=== PATIENT | female | born 1950 | race Caucasian/White ===

== ENCOUNTER 2017-09-11 18:37 | Emergency (ER) | payer BC, MEDICARE ==
[~2017-09-11 18:37] MED LIST: Iopamidol 370 76% 100 ML VIAL ONE
[2017-09-11 19:23] LABS: #Eosinphils 0.3 thou/uL (0.0-0.7); #Lymphocytes 1.5 thou/uL (1.20-3.40); #Monocytes 0.7 thou/uL (0.11-0.59); #Neutrophils 8.2 thou/uL (1.40-6.50); %Basophils 0.4 % (0.0-1.0); %Eosinophils 2.4 % (0.0-10.0); %Lymphocytes 14.1 % (21.0-51.0); %Monocytes 6.1 % (0.0-10.0); Hemoglobin 12.2 g/dL (12.0-16.0); Mean Corpuscular HGB CONC 32.6 g/dL (32.0-36.0); Mean Corpuscular Hemoglobin 29.1 pg (27.0-31.0); Mean Corpuscular Volume 89.1 fl (81.0-99.0); Mean Platelet Volume 7.1 fL (7.4-10.4); Platelet Count 279 thou/uL (130-400); RBC Distribution Width 13.5 % (11.5-14.5); Red Blood Cell (RBC) Count 4.18 mill/uL (4.20-5.40); White Blood Cell (WBC) Count 10.6 thou/uL (4.8-10.8)
[2017-09-11 19:39] LABS: ALT (SGPT) 19 U/L (8-55); AST (SGOT) 15 U/L (5-34); Alkaline Phosphatase 51 U/L (40-150); Anion Gap 14 mmol/L (10-20); BUN (Urea Nitrogen) 14 mg/dL (9.8-20.1); Bilirubin, Total 0.3 mg/dL (0.2-1.2); Calc. Creatinine Clearance 0 mL/min (70-130); Calcium 9.2 mg/dL (7.8-10.44); Carbon Dioxide 26 mmol/L (23-31); Chloride 105 mmol/L (98-107); Estimated GFR-MDRD 49; Globulin 3.1 g/dL (2.4-3.5); Glucose 112 mg/dL (80-115); Lipase 41 U/L (8-78); Potassium 3.7 mmol/L (3.5-5.1); Protein, Total 7.1 g/dL (6.0-8.3); Sodium 141 mmol/L (136-145)
[2017-09-11 20:28] LABS: Bilirubin Negative (Negative); Blood, Urine Trace (Negative); Clarity Clear (Clear); Glucose, Urine (Dipstick) Negative (Negative); Leukocyte Negative (Negative); Nitrite Negative (Negative); Protein, Urine (Dipstick) Negative (Neg-Trace); Urobilinogen 0.2 mg/dL (0.2-1.0); pH, Urine 7.5 (5.0-9.0)
[2017-09-11 20:35] LABS: Bacteria/HPF Rare-Few HPF (None Seen); RBC/HPF 0-3 HPF (0-3); Squamous Epithelial 0-3 HPF (0-3); WBC/HPF 0-3 HPF (0-3)
--- NOTE | 2017-09-11 21:40 | CT ---
CT ABDOMEN AND PELVIS WITH IV CONTRAST 09/11/17 HISTORY: Abdominal pain that began at 0430 hours today. Patient states similar symptoms when patient was diagn osed with diverticulitis. Patient also reports nausea and constipation. COMPARISON: 07/18/11. FINDINGS: There are partially calcified bilateral breast prostheses again partially imaged. Lung bases are clear. There is a subcentimeter too small to characterize hypodense lesion near the dome of the liver. The spleen, pancreas, bilateral adrenal glands, kidneys, and urinary bladder demonstrate a normal CT appearance. There is a lobulated appearance of the uterus with small low density mass with increased density pres ent in the anterior body of the uterus measuring 1.9 cm with suggestion of increased density rounded mass resulting in mass effect on the endometrium measuring 1.8 cm. The findings are probably related to uterine fibroids, although it is difficult to definitely determine. There are colonic diverticula involving the distal descending and proximal sigmoid colon with colonic wall thickening and adjacent pericolonic inflammatory changes. The findings are most compatible with diverticulitis. No free intraperitoneal gas is seen and there is no fluid collection seen to suggest an abscess. Small amount of free fluid is seen in the cul-de-sac. Degenerative changes are noted in the lower lum bar spine. IMPRESSION: 1. Diverticulitis involving the proximal sigmoid colon. Followup evaluation after treatment is r ecommended. 2. Small amount of free fluid in the pelvis. 3. Findings likely attributable to uterine fibroids. 4. Subcentimeter too small to characterize hypodense lesion near the dome of the liver. 5. No CT evidence of appendicitis. POS: [facility]
== END 2017-09-11 20:34 | disposition home or self-care (01) ==
LOC: SCSER 18:37
DX: K57.92 Diverticulitis of intestine, part unspecified, without perforation or abscess without bleeding (principal); K76.9 Liver disease, unspecified; K21.9 Gastro-esophageal reflux disease without esophagitis
CPT/HCPCS: 36415; 74177; 80053; 81003; 81015; 83690; 85025; 96360

== ENCOUNTER 2017-10-21 12:04 | Outpatient (CLI) | payer BC, MEDICARE ==
--- NOTE | 2017-10-21 15:10 | ULT ---
PELVIC ULTRASOUND: Transabdominal and endovaginal ultrasound of pelvis performed. HISTORY: Uterine mass. Recent CT suggest uterine fibroids. FINDINGS: Uterus is mildly prominent with measurements recorded at 13.5 x 5.6 x 5.0 cm. There is fluid or blood in the endometrial cavity with endometrium being prominent. Endometrial stri pe cannot be adequately assessed due to the blood/fluid in the endometrial cavity. There is a small focal hyperechoic area in the endometrium measuring approximately 0.7 cm, which could potentially rep resent an endometrial polyp or mass. Uterus is slightly retroverted. There is evidence of 2 uterine fibroids, the largest in the fundus measures 2.2 cm. Another measures 1 to 1.5 cm. Neither ovary is identified. No free pelvic fluid. IMPRESSION: 1. Mildly prominent uterus with evidence of uterine fibroids as described. 2. Endometrial cavity is abnormal in a patient of this age. There is fluid/blood in the endometrial cavity and there is an echogenic focus which could represent polyp or mass. Recommend endometrial s ampling. POS: [facility]
== END 2017-10-21 12:05 | disposition home or self-care (01) ==
LOC: ULT 12:04
PROVIDERS: ATTEND Family Medicine
DX: N85.9 Noninflammatory disorder of uterus, unspecified (principal); R01.1 Cardiac murmur, unspecified; I34.0 Nonrheumatic mitral (valve) insufficiency; D25.9 Leiomyoma of uterus, unspecified
CPT/HCPCS: 76856; 93306

== ENCOUNTER 2017-11-13 07:54 | Outpatient (CLI) | payer BC, MEDICARE | END 2017-11-13 07:55 | disposition home or self-care (01) | LOC: BICMAMMO 07:54 | PROVIDERS: ATTEND Family Medicine | DX: Z12.31 Encounter for screening mammogram for malignant neoplasm of breast (principal); Z78.0 Asymptomatic menopausal state | CPT/HCPCS: 77063; 77067; 77080 ==

== ENCOUNTER 2017-12-17 15:42 | Outpatient (CLI) | payer BC, MEDICARE ==
[2017-12-17 16:14] LABS: Hemoglobin 12.2 g/dL (12.0-16.0); Mean Corpuscular HGB CONC 32.4 g/dL (32.0-36.0); Mean Corpuscular Hemoglobin 28.8 pg (27.0-31.0); Mean Platelet Volume 7.3 fL (7.4-10.4); Platelet Count 247 thou/uL (130-400); RBC Distribution Width 13.5 % (11.5-14.5); Red Blood Cell (RBC) Count 4.23 mill/uL (4.20-5.40)
== END 2017-12-17 15:43 | disposition home or self-care (01) ==
LOC: LABBT 15:42
PROVIDERS: ATTEND Obstetrics & Gynecology
DX: Z01.812 Encounter for preprocedural laboratory examination (principal); N95.0 Postmenopausal bleeding
CPT/HCPCS: 85027; 86850; 86900; 86901

== ENCOUNTER 2017-12-23 05:33 | Day surgery (SDC) | payer BC, MEDICARE ==
[2017-12-17 16:10] VITALS: BMI 31.8
--- NOTE | 2017-12-22 20:03 | HP ---
PREOPERATIVE DIAGNOSIS: Abnormal endometrium. PROCEDURES TO BE PERFORMED: Cervical dilation, hysteroscopy, and possible polypectomy versus endomet rial curettage. HISTORY OF PRESENT ILLNESS: Ms. Anna Garber is a 67-year-old 3, para 3, who was referred fr om Dr. Tae Boothe for abnormal ultrasound findings. The patient reports menopause after dilation and curettage procedure approximately 10 years ago. The patient had a CT scan for diverticular concerns and an enlarged uterus was noted, and an ultrasound subsequently completed. An ultrasound reports a n approximate 13 cm uterus with a small fibroid and fluid within the endometrial cavity. Today, the patient denies any postmenopausal bleeding. The patient was counseled and consented for office hyste roscopy and endometrial biopsy; however, her cervical stenosis was encountered at the time of her exa m and endometrial biopsy did not yield a satisfactory specimen and hysteroscopy was not able to be co mpleted. The patient has since been counseled for diagnostic hysteroscopy with endometrial sampling. CURRENT MEDICATIONS: Prempro 0.625/2.5. PAST MEDICAL HISTORY: Diverticulitis, hyperlipidemia, and osteoarthritis. PAST SURGICAL HISTORY: Breast enlargement procedure and tubal ligation. OBSTETRICAL HISTORY: Three vaginal deliveries. GYNECOLOGIC HISTORY: Last menstrual period approximately in 2007. SOCIAL HISTORY: No alcohol, tobacco or drug use. She works fulltime at [employer] and is currently . ALLERGIES: The patient does not report any latex allergy, only reported allergy is PENICILLIN. FAMILY HISTORY: Significant for endometrial cancer in her mother, essential hypertension in her moth er, heart disease in her father and sister with colon cancer. REVIEW OF SYSTEMS: Negative except as stated in HPI. PHYSICAL EXAMINATION: VITAL SIGNS: Weight 180 pounds, BMI 31.9, blood pressure 120/64. GENERAL: No acute distress. Alert and oriented. CARDIOVASCULAR: Regular rate and rhythm. LUNGS: Clear to auscultation bilaterally. ABDOMEN: Soft, nontender, no masses. No hepatosplenomegaly, no hernia. GENITOURINARY: Normal external female genitalia with expected postmenopausal findings. PELVIC: Normal appearing vaginal mucosa, no discharge, no cervical lesions. Uterus moderately enlar ged, but nontender. MUSCULOSKELETAL: Normal range of motion. NEUROLOGIC: Grossly oriented. SKIN: No rashes. ASSESSMENT AND PLAN: Ms. Anna Garber is a 67-year-old with abnormal ultrasound findings with a thic kened endometrial stripe and fluid within the endometrial cavity. She does not have a history of pos tmenopausal bleeding, but with these abnormal ultrasound findings and a family history of uterine and colon cancer, we have discussed the indication for diagnostic hysteroscopy with possible polypectomy versus endometrial curettage. The patient has been offered genetic testing for Sierra syndrome and h as not requested testing at this time. The risk and benefits of the procedure have been discussed wi th her in detail. She understands the risks are to include, but not limited to bleeding, infection, inability to fully diagnose and treat all conditions at the time of surgery, and possible need for fu ture medical and/or surgical management. She also understands a hysteroscopy carries a risk of uteri ne perforation with possible indication for emergent laparotomy. The patient's questions have been a nswered to her satisfaction, and she desires to proceed with the procedure as listed above.
[2017-12-23] MEDS ORDERED: Fentanyl 100 MCG/2 ML VIAL ONE (06:35)
[2017-12-23] MEDS ORDERED: Promethazine HCl 25 MG/ML VIAL ONE (07:02)
[2017-12-23] MEDS ORDERED: Famotidine/PF 20 mg/2ml Vial ONE (07:02)
[2017-12-23] MEDS ORDERED: Midazolam HCl 2 mg/2 ml Vial ONE (07:32)
--- NOTE | 2017-12-23 11:31 | OP ---
DATE OF PROCEDURE: 12/23/2017 PREOPERATIVE DIAGNOSES: 1. Abnormal endometrium with endometrial fluid collection on ultrasound. 2. Enlarged uterus. POSTOPERATIVE DIAGNOSIS: Hematocolpos, abnormal endometrium. PROCEDURES PERFORMED: Cervical dilation, diagnostic hysteroscopy and endometrial curettage. SURGEON: Samm Boothe D.O. BUSINESS ANALYTICS FACULTY MEMBER: None. ESTIMATED BLOOD LOSS: Less than 10 mL. ANESTHESIA: LMA. COMPLICATIONS: None. SURGICAL FINDINGS: 1. Stenotic cervix. 2. Hematocolpos. 3. Abnormal appearing endometrium with a small polyp on the right lateral wall and proliferative giovani demetri cystic changes to the endometrium noted. PROCEDURE IN DETAIL: The patient was taken back to the OR with IV fluids running. Once the patient was asleep, she was placed in low dorsal lithotomy position. The vagina was prepped and draped in no rmal fashion for vaginal surgery. The bladder was drained approximately 400 mL of urine. Surgeon nadia finley scrubbed in. An operative speculum was placed into the vagina. The cervix was easily visualized a nd the anterior lip was grasped with a single tooth tenaculum. The cervix was then serially dilated to approximately 18 Greek. Once the cervix was dilated and the hysteroscope was placed through the cervix and into the intrauterine cavity, hematocolpos was noted with old blood that appeared to be tr apped behind cystic and filmy tissue. Once the hysteroscope was removed, a small endometrial curette was placed through the cervical canal and into the uterus. Sharp curette was used to collect endome trial tissue. Immediate old dark blood return from the uterus upon curettage. Once uterine cry was appreciated, the curettage portion of the procedure was terminated. The hysteroscope was replaced in to the uterus with a small polypoid tissue noted at the patient's right side. A polyp forceps was th en passed once the camera was removed and a small amount of tissue was removed for pathologic view as well. The hysteroscope returned to the uterus one more time for a final view. No active areas of b leeding were noted. The pictures before and after the curettage were taken and printed and placed on the patient's chart. The fluid deficit was approximately 100 mL. Single tooth tenaculum was remove d from the anterior lip of the cervix and no bleeding was noted. There was no active bleeding from t he cervix at the end of the case. The patient was cleaned and dry. All instrument counts were corre ct. The patient was then taken out of lithotomy position and transferred to the recovery room in go d condition.
== END 2017-12-23 10:40 | disposition home or self-care (01) ==
LOC: SDC 05:33
PROVIDERS: ATTEND Obstetrics & Gynecology
PROC: 0UDB8ZX Extraction of Endometrium, Via Natural or Artificial Opening Endoscopic, Diagnostic (ICD-10-PCS; principal; 2017-12-23)
DX: N89.7 Hematocolpos (principal); N88.2 Stricture and stenosis of cervix uteri; E78.5 Hyperlipidemia, unspecified; M19.90 Unspecified osteoarthritis, unspecified site; Z79.890 Hormone replacement therapy; Z88.0 Allergy status to penicillin; Z98.890 Other specified postprocedural states; Z80.49 Family history of malignant neoplasm of other genital organs
CPT/HCPCS: 88305; J2250; J2550; J3010; J7050; S0028

== ENCOUNTER 2018-05-14 07:30 | Day surgery (SDC) | payer BC, MEDICARE ==
[2018-05-13 12:57] VITALS: BMI 31.8
[2018-05-14 08:19] LABS: Hemoglobin 13.6 g/dL (12.0-16.0)
[2018-05-14 08:48] LABS: Anion Gap 11 mmol/L (10-20); BUN (Urea Nitrogen) 15 mg/dL (9.8-20.1); Calc. Creatinine Clearance 65 mL/min (70-130); Calcium 9.1 mg/dL (7.8-10.44); Carbon Dioxide 24 mmol/L (23-31); Chloride 107 mmol/L (98-107); Estimated GFR-MDRD 51; Glucose 91 mg/dL (80-115); Potassium 4.1 mmol/L (3.5-5.1); Sodium 138 mmol/L (136-145)
[2018-05-14] MEDS ORDERED: Oxymetazoline HCl 0.05% ( 15 ML ) ONE (08:49)
[2018-05-14] MEDS ORDERED: Fentanyl 250 MCG/5 ML VIAL ONE (09:25)
[2018-05-14] MEDS ORDERED: Bacitracin Zinc Ointment 30 gm TUBE ONE (09:30)
[2018-05-14] MEDS ORDERED: Lidocaine 1% w/Epinephrine 1:100K 30 ML VIAL ONE (09:30)
[2018-05-14] MEDS ORDERED: Ondansetron HCl/PF 4 MG/2 ML Vial ONE (09:54)
[2018-05-14] MEDS ORDERED: Dexamethasone 20 MG/5 ML VIAL ONE (09:54)
[2018-05-14] MEDS ORDERED: PROPOFOL 200 MG/20 ML VIAL ONE (09:54)
[2018-05-14] MEDS ORDERED: PHENYLEPHRINE-NS 100 MCG/ML 10 ML SYRINGE ONE (09:54)
[2018-05-14] MEDS ORDERED: Lidocaine 1% PF 5 ML VIAL ONE (09:54)
[2018-05-14] MEDS ORDERED: Fentanyl 100 MCG/2 ML VIAL ONE (10:29)
[2018-05-14] MEDS ORDERED: Promethazine HCl 25 MG/ML VIAL ONE (12:09)
--- NOTE | 2018-05-14 21:50 | OP ---
DATE OF PROCEDURE: 05/14/2018 PREOPERATIVE DIAGNOSES: 1. Chronic rhinosinusitis. 2. Nasal septal deviation. 3. Bilateral inferior turbinate hypertrophy. 4. Nasal obstruction. POSTOPERATIVE DIAGNOSES: 1. Chronic rhinosinusitis. 2. Nasal septal deviation. 3. Bilateral inferior turbinate hypertrophy. 4. Nasal obstruction. PROCEDURES: 1. Bilateral endoscopic sinus surgery, total ethmoidectomies. 2. Bilateral endoscopic sinus surgery, maxillary antrostomies. 3. Bilateral endoscopic sinus surgery, frontal sinusotomy. 4. Bilateral endoscopic sinus surgery, sphenoidotomy. 5. Nasal septoplasty. 6. Bilateral inferior turbinate submucosal resection. SURGEON: Kavin Ramos M.D. ESTIMATED BLOOD LOSS: 50 mL COMPLICATIONS: None. ANESTHESIA: GETA. PROCEDURE IN DETAIL: The patient was taken to the operating room and placed supine on the table. Ge neral endotracheal anesthesia was obtained by the Anesthesia staff. Tube was secured in the left low er lip. Patient was then placed in the beach chair position, and Afrin pledgets were placed in the n irma cavity. Injections of 1% lidocaine with 1:100,000 epinephrine were made into the nasal septum a s well as the inferior turbinates. Patient was then prepped and draped in standard surgical fashion for nasal surgery. Following this, the Afrin pledgets were removed. A Comfort incision was made on the left nasal septum. Submucoperichondrial dissection was performed. The deviated portions of the septum included portions of the cartilage and the bony septum. These isolated areas were removed usi ng three cutting rongeurs. There was noted to be a large dorsal and caudal strut, left intact for henson pport of the nose. The mucoperichondrial flaps were then reapproximated using a 4-0 gut stitch. Any straight pieces of cartilage were crushed prior to this and placed between the mucoperichondrial fla ps. Following this, the inferior turbinates were then punctured with a submucosal coblation wand, an d submucosal coblations were performed of multiple areas of the inferior portion of the anterior infe rior turbinate. Please note that the submucosal microdebrider was used to submucosally resect the anterior and inferi or portions of the inferior turbinates bilaterally. Following this, the inferior turbinates were lat erally fractured with a Jbphh elevator. Following this, the 0-degree endoscope was advanced into the middle meatus. Middle turbinate was gently medialized with a Jbphh elevator. The uncinate process was identified bilaterally. Following this, the uncinate process was anteriorly fractured using the ball-ended probe and then was removed using the 0-degree microdebrider and the upbiting Blakesley for ceps bilaterally. Following this, the natural maxillary sinus ostia was identified with the ball-end ed probe and was gently widened using the straight microdebrider and straight Blakesley forceps. Fol lowing this, the ethmoidal bulla was identified bilaterally and was punctured on its medial and infer ior aspect with the 0-degree microdebrider. The microdebrider and upbiting Blakesley forceps were us ed to remove the ethmoidal bulla cells as well as the anterior ethmoidal cells. Following this, the grand lamella was identified bilaterally and was punctured into the posterior ethmoidal cells using a 0-degree microdebrider. Working from posterior to anterior, the ethmoidal cells were opened in a mu cosal-sparing technique. Following this, the sphenoid sinus was approached through the previous ethm oidectomies where the natural sphenoid ostia was identified and was noted to be very stenotic. The 0 -degree microdebrider was used to puncture the sphenoid sinus ostia bilaterally and widen the sphenoi d ostia medially and inferiorly using the microdebrider. Following this, a 45-degree scope and the c urved microdebrider were used to further open the frontal recess cells exposing the frontal sinus ost ia bilaterally. Following this, the frontal sinus ostia was widened bilaterally using the curved zack rodebrider blade. The patient tolerated the procedure well. Nasal cavity was irrigated. MeroPacks were placed within the middle meatus. Santiago splints were placed and secured.
--- NOTE | 2018-05-18 17:12 | EKG ---
Test Reason : PREOP Blood Pressure : / mmHG Vent. Rate : 085 BPM Atrial Rate : 085 BPM P-R Int : 168 ms QRS Dur : 088 ms QT Int : 392 ms P-R-T Axes : 056 -27 034 degrees QTc Int : 466 ms Sinus rhythm with occasional Premature ventricular complexes Otherwise normal ECG When compared with ECG of 18-JUL-2011 14:33, Premature ventricular complexes are now Present QT has lengthened Confirmed by GENEVIEVE SALINAS (2) on 05/18/2018 5:11:45 PM Referred By: JENNIE Confirmed By:GENEVIEVE SALINAS
== END 2018-05-14 13:41 | disposition home or self-care (01) ==
LOC: SDC 07:30
PROVIDERS: ATTEND Otolaryngology Plastic Surgery within the Head & Neck
PROC: 09BM8ZZ Excision of Nasal Septum, Via Natural or Artificial Opening Endoscopic (ICD-10-PCS; principal; 2018-05-14)
PROC: 09TU8ZZ Resection of Right Ethmoid Sinus, Via Natural or Artificial Opening Endoscopic (ICD-10-PCS; principal; 2018-05-14)
PROC: 09TV8ZZ Resection of Left Ethmoid Sinus, Via Natural or Artificial Opening Endoscopic (ICD-10-PCS; principal; 2018-05-14)
DX: J32.4 Chronic pansinusitis (principal); J34.2 Deviated nasal septum; J34.3 Hypertrophy of nasal turbinates; H61.20 Impacted cerumen, unspecified ear; K21.9 Gastro-esophageal reflux disease without esophagitis; E78.00 Pure hypercholesterolemia, unspecified; Z79.899 Other long term (current) drug therapy; Z88.0 Allergy status to penicillin; Z88.5 Allergy status to narcotic agent
CPT/HCPCS: 36415; 80048; 85014; 85018; 93005; 93010; 96374; 96375; J1100; J2001; J2405; J2550; J2704; J3010

== ENCOUNTER 2018-05-22 14:56 | Outpatient (CLI) | payer BC, MEDICARE ==
--- NOTE | 2018-05-22 16:10 | RAD ---
CHEST PA AND LATERAL TWO VIEWS: History: 68-year-old female with history of dyspnea on exertion for six months. Comparison: 07-18-11 FINDINGS: Bilateral breast augmentation prosthesis. Minimal increased linear and interstitial changes bilateral ly with some biapical pleural thickening. No confluent pneumonia, overt edema, or pleural effusion. IMPRESSION: No acute intrathoracic disease. POS: [facility]
--- NOTE | 2018-05-22 16:29 | RAD ---
RIGHT HIP TWO VIEWS: History: Right hip pain. FINDINGS/IMPRESSION: Mild degenerative change is present. No fracture, dislocation, or bony destruction is identified. POS: [facility]
== END 2018-05-22 14:57 | disposition home or self-care (01) ==
LOC: BICRAD 14:56
PROVIDERS: ATTEND Family Medicine
DX: M25.551 Pain in right hip (principal); R06.09 Other forms of dyspnea; M16.11 Unilateral primary osteoarthritis, right hip
CPT/HCPCS: 71046

== ENCOUNTER 2018-09-02 06:57 | Emergency (ER) | payer BC, MEDICARE | END 2018-09-02 07:29 | disposition home or self-care (01) | LOC: SCSER 06:57 | DX: M62.830 Muscle spasm of back (principal); K21.9 Gastro-esophageal reflux disease without esophagitis | CPT/HCPCS: 99283 ==

== ENCOUNTER 2019-01-30 07:24 | Outpatient (CLI) | payer MEDICARE ==
--- NOTE | 2019-01-30 08:09 | CT ---
CT Cervical Spine WO Con History: [Cervical radiculopathy, herniated nucleus pulposus, degenerative disc disease] Comparison: None Findings: The occipital condyles are intact. The odontoid process is intact. Normal alignment of the temporomandibular joints. There is advanced facet arthropathy. Prevertebral soft tissues are unremarkable. Advanced degenerative disease at the atlantodental interval. There is ossification of the alar ligame nts and transverse ligaments of the dens. Levels are as follows: C2/C3, degenerative disc space height loss. Moderate facet arthropathy. Moderate left and mild right neural foraminal narrowing. C3/C4: Advanced degenerative facet arthrosis, worse on the right. 2 mm anterolisthesis. Moderate righ t and mild left neural foraminal narrowing. C4/C5: Partial fusion, degenerative in nature, of the right facet joints and disc space. Moderate rig ht neural foraminal narrowing primarily due to facet arthropathy. C5/C6: Circumferential disc osteophyte complex. Moderate facet arthropathy. Spinal canal measures vito roximately 8 mm. Moderate bilateral neural foraminal narrowing. C6/C7: Severe left and moderate to severe right facet arthrosis. 2 mm anterolisthesis. No significant neural foraminal or spinal canal narrowing. Impression: [id number] degenerative changes described. No acute fracture the cervical spine.
--- NOTE | 2019-01-30 09:12 | RAD ---
CERVICAL SPINE 5 VIEWS: HISTORY: Cervical radiculopathy. Herniated nucleus pulposus. Degenerative disk disease. FINDINGS: AP and open mouth views demonstrate appropriate alignment. There are degenerative changes of the fac ets, best demonstrated in the AP projection. No prevertebral soft tissue swelling. Predental space is normal. There is severe loss of disk space height at C4-C5 and C5-C6. In the neutral position, there is no significant spondylolisthesis. Upo n extension and flexion, there is no abnormal motion. Cervical spine is best demonstrated from the C1 through C6-C7 disk space level. Limited evaluation o f the C7 vertebral body as well as cervicothoracic junction. IMPRESSION: Severe degenerative change at C5-C6 as well as C4-C5. There appears to be fusion of the C4-C5 disk s pace. Please refer to cervical spine CT performed on the same date for further detail. POS: [facility]
== END 2019-01-30 07:25 | disposition home or self-care (01) ==
LOC: SCSCT 07:24
PROVIDERS: ATTEND Surgery
DX: M50.10 Cervical disc disorder with radiculopathy, unspecified cervical region (principal); M47.22 Other spondylosis with radiculopathy, cervical region; M54.2 Cervicalgia; Z98.1 Arthrodesis status
CPT/HCPCS: 72050; 72125

== ENCOUNTER 2019-03-02 09:50 | Outpatient (CLI) | payer MEDICARE ==
--- NOTE | 2019-03-02 11:33 | MMO ---
Bilateral MAMMO Bilat Screen DDI+DYLAN. CLINICAL HISTORY: Patient is 68 years old and is seen for screening. The patient has no family history of breast cancer. The patient has no personal history of cancer. The patient has a history of bilateral Implants in 1984 - benign. VIEWS: The views performed were: bilateral craniocaudal; bilateral mediolateral oblique; and bilateral Implant displaced with tomosynthesis. FILMS COMPARED: The present examination has been compared to prior imaging studies performed at [facility] on 11/11/2015, 11/12/2016 and 11/13/2017, and at [facility] on 01/26/2011. MAMMOGRAM FINDINGS: The breasts are heterogeneously dense, which could obscure a lesion on mammography. Normal implants are present. There are no suspicious masses, suspicious calcifications, or new areas of architectural distortion. IMPRESSION: THERE IS NO MAMMOGRAPHIC EVIDENCE OF MALIGNANCY. A ROUTINE FOLLOW-UP MAMMOGRAM IN 1 YEAR IS RECOMMENDED. THE RESULTS OF THIS EXAM WERE SENT TO THE PATIENT. ACR BI-RADS Category 2 - Benign finding MAMMOGRAPHY NOTE: 1. A negative mammogram report should not delay a biopsy if a dominant of clinically suspicious mass is present. 2. Approximately 10% to 15% of breast cancers are not detected by mammography. 3. Adenosis and dense breasts may obscure an underlying neoplasm.
== END 2019-03-02 09:51 | disposition home or self-care (01) ==
LOC: BICMAMMO 09:50
PROVIDERS: ATTEND Family Medicine
DX: Z12.31 Encounter for screening mammogram for malignant neoplasm of breast (principal); Z98.82 Breast implant status
CPT/HCPCS: 77063; 77067

== ENCOUNTER 2019-04-23 09:37 | Day surgery (SDC) | payer MEDICARE ==
[2019-04-23] MEDS ORDERED: PROPOFOL 200 MG/20 ML VIAL ONE (10:47)
[2019-04-23] MEDS ORDERED: Rocuronium Bromide 10 MG/ML (10ML VIAL) ONE (10:47)
[2019-04-23] MEDS ORDERED: Ondansetron PF 4 MG/2 ML Vial ONE (10:47)
[2019-04-23] MEDS ORDERED: Glycopyrrolate 0.2 MG/ML 5 ML SYRINGE ONE (10:47)
[2019-04-23] MEDS ORDERED: Labetalol HCl 100 MG/20 ML VIAL ONE (10:47)
[2019-04-23] MEDS ORDERED: Lidocaine 1% PF 5 ML VIAL ONE ×2 (10:47→12:01)
[2019-04-23] MEDS ORDERED: Vecuronium 10 MG VIAL ONE (10:47)
[2019-04-23] MEDS ORDERED: Dexamethasone 20 MG/5 ML VIAL ONE (10:47)
[2019-04-23] MEDS ORDERED: Midazolam HCl 2 mg/2 ml Vial ONE (11:46)
[2019-04-23] MEDS ORDERED: PROPOFOL 20 ML ONE (12:01)
[2019-04-23] MEDS ORDERED: Clindamycin/D5W 900 mg/50 ml Premix Bag ONE (12:01)
[2019-04-23] MEDS ORDERED: Levofloxacin 500 mg/D5W 100 ml Premix Bag ONE (12:01)
[2019-04-23] MEDS ORDERED: Fentanyl 100 MCG/2 ML VIAL ONE ×4 (12:01→15:32)
[2019-04-23] MEDS ORDERED: Rocuronium Bromide 50 MG/5 ML VIAL ONE (12:01)
[2019-04-23] MEDS ORDERED: Thrombin 5000 UNITS/5 ML VIAL ONE (12:38)
[2019-04-23] MEDS ORDERED: Sodium Chloride 0.9% 10 ML ONE (12:38)
[2019-04-23] MEDS ORDERED: Promethazine HCl 25 MG/ML VIAL IM PRN (14:26)
[2019-04-23] MEDS ORDERED: Promethazine HCl 25 MG/ML VIAL SLOW IVP PRN (14:26)
[2019-04-23] MEDS ORDERED: Ondansetron HCl/PF 4 MG/2 ML Vial IVP PRN (14:26)
[2019-04-23] MEDS ORDERED: HYDROmorphone 2 MG/ML VIAL SLOW IVP PRN (14:26)
[2019-04-23] MEDS ORDERED: Ondansetron PF 4 MG/2 ML Vial IVP PRN (15:05)
[2019-04-23] MEDS ORDERED: Bisacodyl 10 MG SUPP PR PRN (15:05)
[2019-04-23] MEDS ORDERED: Fleet Enema 133 ML BOT PR PRN (15:05)
[2019-04-23] MEDS ORDERED: Mag-Al 1200 mg/1200 mg/30 ML UDCUP PO PRN (15:05)
[2019-04-23] MEDS ORDERED: traMADol HCl 50 MG TAB PO PRN (15:05)
[2019-04-23] MEDS ORDERED: HYDROcodone/Acetaminophen 7.5/325 mg Tablet PO PRN (15:05)
[2019-04-23] MEDS ORDERED: Milk Of Magnesia 30 ML UDCUP PO PRN (15:05)
[2019-04-23] MEDS ORDERED: tiZANidine HCl 4 MG TAB PO PRN (15:05)
[2019-04-23] MEDS ORDERED: Promethazine HCl 25 MG/ML VIAL ONE (15:16)
[2019-04-23] MEDS ORDERED: Metoclopramide HCl 10 MG/2 ML VIAL ONE (15:49)
[2019-04-23] MEDS: Sodium Chloride 0.9% 1,000 ML IV SCH ×2 (16:46→21:34)
[2019-04-23 17:29] VITALS: BMI 31.8
[2019-04-23] MEDS ORDERED: Atorvastatin Calcium 20 MG TAB PO SCH (21:00)
[2019-04-23] MEDS ORDERED: ESTRADIOL PO SCH (21:00)
[2019-04-23] MEDS ORDERED: Citrucel 500 MG TAB PO SCH (21:00)
[2019-04-23] MEDS ORDERED: NORETHINDRONE PO SCH (21:00)
[2019-04-23] MEDS: Clindamycin/D5W 900 MG in Premix Bag 1 BAG IVPB SCH (21:34)
[2019-04-24] MEDS: Clindamycin/D5W 900 MG in Premix Bag 1 BAG IVPB SCH (03:56)
[2019-04-24] MEDS: Acetaminophen 325 MG TAB PO PRN ×2 (04:00→08:16)
[2019-04-24 08:02] VITALS: BP 135/82; TEMP 98.3
--- NOTE | 2019-04-24 08:22 | OP ---
DATE OF PROCEDURE: 04/23/2019 BUILDING ATTENDANT: Prince Rand PA-C. PREPROCEDURE DIAGNOSES: Cervical radiculopathy and cervical stenosis. POSTPROCEDURE DIAGNOSES: Cervical radiculopathy and cervical stenosis. PROCEDURES PERFORMED: 1. Anterior C5-C6 diskectomy for decompression of spinal cord nerve roots. 2. Placement of interbody spacer packed with graft C5-C6 for arthrodesis. 3. Anterior cervical plate and screw fixation, C5-C6. 4. Use of operative microscope for microdissection. DESCRIPTION OF PROCEDURE: After informed consent was obtained from the patient, the patient was brought to the OR. Proper patient, pause, and identification were carried out. She was placed under excellent general endotracheal anesthesia and positioned supine on the OR table. All appropriate points were padded. The right anterior oblique valorie was drawn out for approach to the C5-C6 segment. This region was sterilely cleansed prepared and draped. Proper patient, pause, and identification were carried out. The wound was then opened with combination of sharp, monopolar, and blunt dissection, and we then proceed medial to the tracheoesophageal bundle and medial to the carotid sheath and lateral to the tracheoesophageal bundle. We identified the prevertebral layer of deep cervical fascia and longus colli muscles, and retractors were placed. Localization confirmed our area of interest. The osteophyte was removed at C5-C6 and distraction at C5-C6 then occurred. Diskectomy was then performed with the use of operative microscope for microdissection. We had excellent decompression of common dural tube and bilateral C6 nerve roots. The endplates were prepared. Interbody spacer was packed with local bone autograft, obtained with same incision. Allograft was placed for initiation of arthrodesis. We then removed the microscope and anterior cervical plate and screw fixation, C5-C6 then occurred. Copious irrigation occurred throughout as did maximizing hemostasis. The wound was then closed in anatomic layers over drain. The patient then emerged from anesthesia. Job ID: [id number]
[2019-04-24] MEDS ORDERED: Ascorbic Acid 500 mg Chewable Tablet PO SCH (09:00)
[2019-04-24] MEDS ORDERED: Calcium Carbonate + Vit D 1 TAB PO SCH (09:00)
[2019-04-24] MEDS ORDERED: Multivitamin W/ Minerals 1 TAB PO SCH (09:00)
[2019-04-24] MEDS ORDERED: Loratadine 10 MG TAB PO SCH (09:00)
[2019-04-24] MEDS ORDERED: Prevnar 13-Val Conj/PF 0.5 ML SYRINGE IM ONE (09:00)
[2019-04-24] MEDS ORDERED: Ferrous Sulfate 325 MG TAB PO SCH (09:00)
[2019-04-24] MEDS ORDERED: PSYLLIUM HUSK PO SCH (09:00)
--- NOTE | 2019-04-25 02:59 | DIS ---
DATE OF ADMISSION: 04/23/2019 DATE OF DISCHARGE: 04/24/2019 DISCHARGE DIAGNOSES: 1. Cervical stenosis. 2. Cervical radiculopathy. HOSPITAL COURSE: Ms. Garber was admitted to undergo a C5-C6 ACDF with Dr. Muse on 04/23/2019. The surgery was without complication and a FREDY drain was placed. The patient required one overnight stay for adequate pain control and to monitor her drain output. At the time of discharge, she had significant improvement in her nausea postoperatively as well as improvement in hoarseness, neck pain, and had complete resolution of her bilateral upper extremity symptoms. Her drain was removed and she had met criteria for discharge. Appropriate patient education outpatient followups were provided. The patient and her were both very pleased with her outcome postoperatively with the understanding to call the office with questions or concerns prior to her next followup appointment. Job ID: [id number]
== END 2019-04-24 10:47 | disposition home or self-care (01) ==
LOC: SDC 09:37 → SJJU 15:04 → SDC 04-24 10:47
PROVIDERS: ATTEND Surgery
PROC: 0RG10A0 Fusion of Cervical Vertebral Joint with Interbody Fusion Device, Anterior Approach, Anterior Column, Open Approach (ICD-10-PCS; principal; 2019-04-23)
PROC: 0RT30ZZ Resection of Cervical Vertebral Disc, Open Approach (ICD-10-PCS; 2019-04-23)
DX: M48.02 Spinal stenosis, cervical region (principal); M54.12 Radiculopathy, cervical region; Z79.899 Other long term (current) drug therapy; Z88.0 Allergy status to penicillin; Z88.5 Allergy status to narcotic agent
CPT/HCPCS: 20930; 20936; 22551; 22845; 22853; 76000; C1713; C1776; J0131; J1100; J1956; J2001; J2250; J2405; J2550; J2704; J2765; J3010; J3490

== ENCOUNTER 2019-06-10 14:44 | Outpatient (CLI) | payer MEDICARE ==
--- NOTE | 2019-06-10 15:05 | RAD ---
4 VIEWS CERVICAL SPINE: Date: 06/10/19 COMPARISON: None. HISTORY: Neck pain. FINDINGS: Open-mouth odontoid view demonstrates an unremarkable dens and C1-2 articulation. Frontal imaging dem onstrates prominent bilateral facet and uncovertebral osteophyte formation, right greater than left, most prominent at the C4-5 and C5-6 levels. Anterior diskectomy and fusion hardware noted at C5-6. Mi nimal anterolisthesis present at C3-4 measuring in the 3 mm range. No prevertebral soft tissue swelli ng. No hardware failure. IMPRESSION: Postoperative and degenerative change within the cervical spine. POS: [facility]
== END 2019-06-10 14:45 | disposition home or self-care (01) ==
LOC: TBSIIMAG 14:44
PROVIDERS: ATTEND Surgery
DX: M54.2 Cervicalgia (principal); M47.812 Spondylosis without myelopathy or radiculopathy, cervical region; Z98.890 Other specified postprocedural states
CPT/HCPCS: 72040

== ENCOUNTER 2019-09-21 11:59 | Day surgery (SDC) | payer MEDICARE ==
[2019-09-18 12:32] VITALS: BMI 30.8
[~2019-09-21 11:59] MED LIST changes: -Iopamidol 370 76% 100 ML VIAL ONE; +Lidocaine 1% PF 5 ML VIAL ONE; +PROPOFOL 200 MG/20 ML VIAL ONE
[2019-09-21] MEDS ORDERED: Fentanyl 100 MCG/2 ML VIAL ONE (12:29)
[2019-09-21] MEDS ORDERED: Midazolam HCl 2 mg/2 ml Vial ONE (12:29)
--- NOTE | 2019-09-21 14:31 | MRI ---
MRI LUMBAR SPINE WITHOUT CONTRAST: Date: 09/21/2019 INDICATION: History of low back pain with radiation into right hip. COMPARISON: None. FINDINGS: Bone marrow signal intensity is within normal limits. There is slight Grade I anterolisthesis of L3 o n L4. Conus is seen to terminate at L1. Visualized retroperitoneum and paravertebral soft tissues vito ear within normal limits. At L5-S1, there is a broad based disc bulge with a superimposed right central to paracentral disc pro trusion. Loss of disc space height in addition to facet hypertrophy and the broad based bulge induce mild to moderate left and mild right neural foraminal narrowing. At L4-5, there is a broad based disc osteophyte complex with facet hypertrophy inducing moderate bila teral lateral recess narrowing. There is also mild to moderate right and mild left neural foraminal n arrowing. At L3-4, there is a disc osteophyte complex with facet hypertrophy inducing mild central canal narrow ing with mild bilateral neural foraminal narrowing. At L2-3, there is a broad based bulge without appreciable central canal or neural foraminal narrowing . At L1-L2, there is no appreciable central canal or neural foraminal narrowing. At T12-L1, there is no appreciable central canal or neural foraminal narrowing. IMPRESSION: 1. Moderate spondylosis of the lumbar spine with mild central canal narrowing at L3-4 with mild bila teral neural foraminal narrowing. 2. Moderate bilateral lateral recess narrowing at L4-5 due to a broad based disc osteophyte complex and facet hypertrophy. There is also mild left and mild to moderate right neural foraminal narrowing at L4-5. 3. Mild right and mild to moderate left neural foraminal narrowing at L5-S1. POS: [facility]
== END 2019-09-21 15:38 | disposition home or self-care (01) ==
LOC: SDC/OP 11:59
PROVIDERS: ATTEND Physician Assistant
DX: M47.816 Spondylosis without myelopathy or radiculopathy, lumbar region (principal); M51.36 Other intervertebral disc degeneration, lumbar region; M48.061 Spinal stenosis, lumbar region without neurogenic claudication; M48.07 Spinal stenosis, lumbosacral region; G89.29 Other chronic pain; M54.41 Lumbago with sciatica, right side; K21.9 Gastro-esophageal reflux disease without esophagitis; M19.90 Unspecified osteoarthritis, unspecified site; E78.00 Pure hypercholesterolemia, unspecified; Z79.899 Other long term (current) drug therapy; Z88.0 Allergy status to penicillin; Z88.5 Allergy status to narcotic agent
CPT/HCPCS: 72148; J2001; J2250; J2704; J3010

== ENCOUNTER 2020-01-19 11:57 | Outpatient (CLI) | payer MEDICARE, OTHER ==
[2020-01-19 15:17] LABS: Hemoglobin 14.1 g/dL (12.0-16.0); Mean Corpuscular HGB CONC 32.6 g/dL (32.0-36.0); Mean Corpuscular Hemoglobin 31.1 pg (27.0-31.0); Mean Corpuscular Volume 95.5 fL (78.0-98.0); Mean Platelet Volume 8.3 fL (7.4-10.4); Platelet Count 251 thou/uL (130-400); RBC Distribution Width 11.9 % (11.5-14.5); Red Blood Cell (RBC) Count 4.55 mill/uL (4.20-5.40); White Blood Cell (WBC) Count 7.2 thou/uL (4.8-10.8)
[2020-01-19 15:23] LABS: INR-International Normal Ratio 0.9; PTT 34.2 sec (22.9-36.1); Prothrombin Time 12.3 sec (12.0-14.7)
[2020-01-19 15:45] LABS: Anion Gap 12 mmol/L (10-20); BUN (Urea Nitrogen) 16 mg/dL (9.8-20.1); Calc. Creatinine Clearance 0 mL/min (70-130); Calcium 9.6 mg/dL (7.8-10.44); Carbon Dioxide 27 mmol/L (23-31); Chloride 105 mmol/L (98-107); Estimated GFR-MDRD 47; Glucose 85 mg/dL (80-115); Potassium 3.9 mmol/L (3.5-5.1); Sodium 140 mmol/L (136-145)
[2020-01-20 10:58] LABS: SARS-CoV-2 MS2 Positive; SARS-CoV-2 N Gene Negative; SARS-CoV-2 S Gene Negative; SARS-CoV-2 orf1ab Negative
== END 2020-01-19 11:58 | disposition home or self-care (01) ==
LOC: LABBT 11:57
PROVIDERS: ATTEND Surgery
DX: Z01.812 Encounter for preprocedural laboratory examination (principal); Z11.59 Encounter for screening for other viral diseases; M48.061 Spinal stenosis, lumbar region without neurogenic claudication; M54.16 Radiculopathy, lumbar region
CPT/HCPCS: 80048; 85027; 85610; 85730; 93005; U0003; 87635; 93010

== ENCOUNTER 2020-01-21 08:15 | Day surgery (SDC) | payer MEDICARE, OTHER ==
[2020-01-19 13:33] VITALS: BMI 31.8
[2020-01-21] MEDS ORDERED: Levofloxacin 500 mg/D5W 100 ml Premix Bag ONE (09:09)
[2020-01-21] MEDS ORDERED: Clindamycin/D5W 900 mg/50 ml Premix Bag ONE (09:09)
[2020-01-21] MEDS ORDERED: Fentanyl 100 MCG/2 ML VIAL ONE ×3 (10:32→14:41)
[2020-01-21] MEDS ORDERED: Lidocaine 1% PF 5 ML VIAL ONE ×2 (10:32→13:52)
[2020-01-21] MEDS ORDERED: PROPOFOL 20 ML ONE (10:32)
[2020-01-21] MEDS ORDERED: Rocuronium Bromide 50 MG/5 ML VIAL ONE (10:32)
[2020-01-21] MEDS ORDERED: Thrombin 5000 UNITS/5 ML VIAL ONE (11:28)
[2020-01-21] MEDS ORDERED: PHENYLEPHRINE-NS 100 MCG/ML 10 ML SYRINGE ONE ×2 (12:51→13:52)
[2020-01-21] MEDS ORDERED: Dexamethasone 20 MG/5 ML VIAL ONE ×2 (13:01→13:52)
[2020-01-21] MEDS ORDERED: Ondansetron PF 4 MG/2 ML Vial ONE ×2 (13:02→13:52)
[2020-01-21] MEDS ORDERED: Glycopyrrolate 0.2 MG/ML 5 ML SYRINGE ONE ×2 (13:02→13:52)
[2020-01-21] MEDS ORDERED: Promethazine HCl 25 MG/ML VIAL IM PRN (13:29)
[2020-01-21] MEDS ORDERED: Ondansetron HCl/PF 4 MG/2 ML Vial IVP PRN (13:29)
[2020-01-21] MEDS ORDERED: Promethazine HCl 25 MG/ML VIAL SLOW IVP PRN (13:29)
[2020-01-21] MEDS ORDERED: HYDROmorphone 2 MG/ML VIAL SLOW IVP PRN (13:29)
[2020-01-21] MEDS ORDERED: Ketorolac Tromethamine 30 MG/ML VIAL ONE ×2 (13:42→13:52)
[2020-01-21] MEDS ORDERED: PROPOFOL 200 MG/20 ML VIAL ONE (13:52)
[2020-01-21] MEDS ORDERED: Rocuronium Bromide 10 MG/ML (10ML VIAL) ONE (13:52)
[2020-01-21] MEDS ORDERED: Mag-Al 1200 mg/1200 mg/30 ML UDCUP PO PRN (14:03)
[2020-01-21] MEDS ORDERED: HYDROcodone/Acetaminophen 7.5/325 mg Tablet PO PRN (14:03)
[2020-01-21] MEDS ORDERED: Ondansetron PF 4 MG/2 ML Vial IVP PRN (14:03)
[2020-01-21] MEDS ORDERED: Ketorolac Tromethamine 30 MG/ML VIAL IVP PRN (14:03)
[2020-01-21] MEDS ORDERED: Bisacodyl 10 MG SUPP PR PRN (14:03)
[2020-01-21] MEDS ORDERED: Fleet Enema 133 ML BOT PR PRN (14:03)
[2020-01-21] MEDS ORDERED: Acetaminophen 325 MG TAB PO PRN (14:03)
[2020-01-21] MEDS ORDERED: Milk Of Magnesia 30 ML UDCUP PO PRN (14:03)
[2020-01-21] MEDS ORDERED: HYDROcodone/Acetaminophen 10/325 mg Tablet PO PRN (14:07)
--- NOTE | 2020-01-21 14:11 | OP ---
DATE OF PROCEDURE: 01/21/2020 ORIENTATION AND MOBILITY INSTRUCTOR: Leigh Robins PA-C PREPROCEDURE DIAGNOSIS: Lumbar stenosis with low back and leg pain. POSTPROCEDURE DIAGNOSIS: Lumbar stenosis with low back and leg pain. PROCEDURES PERFORMED: L3-L4 and L4-L5 laminectomies, partial facetectomies, foraminotomies. DESCRIPTION OF PROCEDURE: After informed consent was obtained from the patient, the patient was brought to the OR. Proper patient, pause, and identification were carried out. She was placed under excellent general endotracheal anesthesia and placed prone. All appropriate points were padded. We identified the L3-L4, L4-L5 dorsal spines. Linear valorie was made over this area. This region was sterilely cleansed, prepared, and draped. Proper patient, pause, and identification were carried out. The wound was then opened with a combination of sharp, monopolar, and blunt dissection and the L3, L4, L5 dorsal spines and lamina were exposed. Localization film confirmed area of interest and performed L3-L4 and L4-L5 laminectomies, partial facetectomies, and foraminotomies. We had excellent decompression of common dural tube and nerve roots. Copious irrigation occurred throughout as did maximizing hemostasis. The wound was then closed in anatomic layers following sprinkling of vancomycin powder. The patient was emerged from anesthesia. Job ID: [id number]
[2020-01-21] MEDS ORDERED: Promethazine HCl 25 MG/ML VIAL ONE (14:44)
[2020-01-21] MEDS: Sodium Chloride 0.9% 1,000 ML IV SCH (15:35)
[2020-01-21] MEDS ORDERED: Clindamycin/D5W 900 MG in Premix Bag 1 BAG IVPB SCH (17:00)
[2020-01-21] MEDS: Clindamycin/D5W 900 MG in Premix Bag 1 BAG IVPB SCH (20:54)
[2020-01-21] MEDS ORDERED: Atorvastatin Calcium 20 MG TAB PO SCH (21:00)
[2020-01-21] MEDS ORDERED: Citrucel 500 MG TAB PO SCH (21:00)
[2020-01-21] MEDS: traMADol HCl 50 MG TAB PO PRN (21:24)
[2020-01-21] MEDS: tiZANidine HCl 4 MG TAB PO PRN (21:24)
[2020-01-22] MEDS: Sodium Chloride 0.9% 1,000 ML IV SCH (02:42)
[2020-01-22] MEDS: Clindamycin/D5W 900 MG in Premix Bag 1 BAG IVPB SCH (03:11)
[2020-01-22] MEDS ORDERED: Metamucil PACK PO SCH (09:00)
[2020-01-22] MEDS ORDERED: Loratadine 10 MG TAB PO SCH (09:00)
[2020-01-22] MEDS: traMADol HCl 50 MG TAB PO PRN (09:56)
[2020-01-22] MEDS: tiZANidine HCl 4 MG TAB PO PRN (09:57)
--- NOTE | 2020-01-22 10:06 | PRG ---
DATE OF SERVICE: 01/22/2020 This is postoperative day #1 from lumbar decompression. She has had resolution in her leg pain. She has as expected operative site pain. She is neurologically intact and has been mobilizing in the [place]. She did feel some dizziness, but this is when she went to the bathroom. We will make sure she is safe before she is dismissed. Job ID: [id number]
[2020-01-22 11:32] VITALS: BP 128/73; TEMP 98.3
== END 2020-01-22 11:50 | disposition home or self-care (01) ==
LOC: SDC 08:15 → SURG A 14:09 → SDC 01-22 11:50
PROVIDERS: ATTEND Surgery
PROC: 01NB0ZZ Release Lumbar Nerve, Open Approach (ICD-10-PCS; principal; 2020-01-21)
DX: M48.061 Spinal stenosis, lumbar region without neurogenic claudication (principal); M54.16 Radiculopathy, lumbar region; Z79.899 Other long term (current) drug therapy; Z88.0 Allergy status to penicillin; Z88.5 Allergy status to narcotic agent; Z98.1 Arthrodesis status
CPT/HCPCS: 76000; J1100; J1885; J1956; J2001; J2405; J2550; J2704; J3010; J3370; J3490

== ENCOUNTER 2020-05-20 06:45 | Emergency (ER) | payer MEDICARE, OTHER ==
[2020-05-20] MEDS ORDERED: Fentanyl 100 MCG/2 ML VIAL ONE (07:35)
== END 2020-05-20 08:17 | disposition home or self-care (01) ==
LOC: ERS 06:45
DX: M79.604 Pain in right leg (principal); K21.9 Gastro-esophageal reflux disease without esophagitis
CPT/HCPCS: 96372; 99283; J3010

== ENCOUNTER 2020-08-08 08:57 | Outpatient (CLI) | payer MEDICARE, OTHER ==
--- NOTE | 2020-08-08 09:42 | BD ---
EXAM: Bone densitometry using DEXA HISTORY: 70 yo female. Screening for postmenopausal osteoporosis FINDINGS: L1--bone mineral density 1.199 g/sq cm; T score 1.9 ; Z score 3.8 L2--bone mineral density 1.330 g/sq cm; T score 2.7 ; Z score 4.8 L3--bone mineral density 1.278 g/sq cm; T score 1.8 ; Z score 4.0 L4--bone mineral density 1.163 g/sq cm; T score 0.9 ; Z score 2.2 Total L1-L4--bone mineral density 1.238 g/sq cm; T score 1.7 ; Z score 3.9 Left femoral neck--bone mineral density0.661; T score -1.7 ; Z score 0.1 Total proximal left femur--bone mineral density 0.858; T score -0.7 ; Z score 0.8 IMPRESSION: Osteopenia
--- NOTE | 2020-08-08 11:05 | MMO ---
Bilateral MAMMO Bilat Screen [facility]. CLINICAL HISTORY: Patient is 70 years old and is seen for screening. The patient has no family history of breast cancer. The patient has no personal history of cancer. The patient has a history of bilateral Implants in 1984 - benign. VIEWS: The views performed were: bilateral craniocaudal with tomosynthesis; bilateral mediolateral oblique with tomosynthesis; and bilateral Implant displaced. FILMS COMPARED: The present examination has been compared to prior imaging studies performed at [facility] on 11/11/2015, 11/12/2016, 11/13/2017 and 03/02/2019. This study has been interpreted with the assistance of computer-aided detection. MAMMOGRAM FINDINGS: The breasts are heterogeneously dense, which could obscure a lesion on mammography. There are no suspicious masses, suspicious calcifications, or new areas of architectural distortion. Bilateral implants are stable. IMPRESSION: THERE IS NO MAMMOGRAPHIC EVIDENCE OF MALIGNANCY. A ROUTINE FOLLOW-UP MAMMOGRAM IN 1 YEAR IS RECOMMENDED. THE RESULTS OF THIS EXAM WERE SENT TO THE PATIENT. ACR BI-RADS Category 1 - Negative MAMMOGRAPHY NOTE: 1. A negative mammogram report should not delay a biopsy if a dominant of clinically suspicious mass is present. 2. Approximately 10% to 15% of breast cancers are not detected by mammography. 3. Adenosis and dense breasts may obscure an underlying neoplasm. Reported by: ALISE FARFAN MD Electonically Signed: [id number]
== END 2020-08-08 08:58 | disposition home or self-care (01) ==
LOC: BICMAMMO 08:57
PROVIDERS: ATTEND Family Medicine
DX: Z12.31 Encounter for screening mammogram for malignant neoplasm of breast (principal); Z13.820 Encounter for screening for osteoporosis; M85.852 Other specified disorders of bone density and structure, left thigh; Z98.82 Breast implant status; Z78.0 Asymptomatic menopausal state
CPT/HCPCS: 77063; 77067; 77080

== ENCOUNTER 2021-08-30 10:32 | Outpatient (CLI) | payer MEDICARE, OTHER | END 2021-08-30 10:33 | disposition home or self-care (01) | LOC: TBSIIMAG 10:32 | PROVIDERS: ATTEND Surgery | DX: M54.50 Low back pain, unspecified (principal); M47.816 Spondylosis without myelopathy or radiculopathy, lumbar region | CPT/HCPCS: 72110 ==

== ENCOUNTER 2024-04-15 12:15 | Outpatient (CLI) | payer MEDICARE, OTHER | END 2024-04-15 12:16 | disposition home or self-care (01) | LOC: RAD 12:15 | PROVIDERS: ATTEND Internal Medicine Critical Care Medicine | DX: R06.00 Dyspnea, unspecified (principal) | CPT/HCPCS: 71046 ==

== ENCOUNTER 2024-07-21 15:34 | Outpatient (CLI) | payer MEDICARE, OTHER ==
[2024-07-21 16:50] LABS: #Basophils Less than 0.03 10x3/uL (0.0-0.2); %Basophils 0.3 % (0.0-1.0); %Eosinophils 3.6 % (0.0-10.0); %Lymphocytes 29.8 % (21.0-51.0); %Monocytes 7.8 % (0.0-10.0); %Neutrophils 58.4 % (42.0-75.0); Hematocrit 45.1 % (36.0-47.0); Hemoglobin 14.8 g/dL (12.0-16.0); Mean Corpuscular HGB CONC 32.8 g/dL (32.0-36.0); Mean Corpuscular Hemoglobin 30.3 pg (27.0-31.0); Mean Corpuscular Volume 92.4 fL (78.0-98.0); Mean Platelet Volume 9.6 fL (7.4-10.4); Platelet Count 220 10x3/uL (130-400); RBC Distribution Width 13.7 % (11.5-14.5); Red Blood Cell (RBC) Count 4.88 mill/uL (4.20-5.40)
[2024-07-21 16:59] LABS: Anion Gap 16 mmol/L (10-20); BUN (Urea Nitrogen) 12 mg/dL (9.8-20.1); Calc. Creatinine Clearance 0 mL/min (70-130); Calcium 9.9 mg/dL (7.8-10.44); Carbon Dioxide 25 mmol/L (23-31); Chloride 104 mmol/L (98-107); Estimated GFR 50; Glucose 91 mg/dL (83-110); Sodium 141 mmol/L (136-145)
== END 2024-07-21 15:35 | disposition home or self-care (01) ==
LOC: LABBT 15:34
PROVIDERS: ATTEND Plastic Surgery
DX: Z01.818 Encounter for other preprocedural examination (principal)
CPT/HCPCS: 80048; 85025

== ENCOUNTER 2024-07-27 05:40 | Day surgery (SDC) | payer MEDICARE, OTHER ==
[2024-07-21 15:54] VITALS: BMI 29.7
[2024-07-27] MEDS ORDERED: Heparin 5,000 UNITS/ML VIAL ONE (06:21)
[2024-07-27] MEDS ORDERED: EPINEPHrine 1 MG/ML VIAL ONE (06:26)
[2024-07-27] MEDS ORDERED: Vancomycin 1 GM VIAL ONE (06:26)
[2024-07-27] MEDS ORDERED: Bupivacaine 0.25% HCL 30 ML VIAL ONE (06:26)
[2024-07-27] MEDS ORDERED: PROPOFOL 20 ML ONE (07:03)
[2024-07-27] MEDS ORDERED: fentaNYL PF 100 MCG/2 ML SYRINGE ONE ×2 (07:03→08:40)
[2024-07-27] MEDS ORDERED: Lidocaine 1% PF 5 ML VIAL ONE (07:04)
[2024-07-27] MEDS ORDERED: Propofol 500 MG/50 ML VIAL ONE (07:07)
[2024-07-27] MEDS ORDERED: CEFAZOLIN 2 GM VIAL ONE (07:16)
[2024-07-27] MEDS ORDERED: Famotidine/PF 20 mg/2ml Vial ONE (07:31)
[2024-07-27] MEDS ORDERED: Tranexamic Acid 1,000 MG/10 ML VIAL ONE ×2 (07:42)
[2024-07-27] MEDS ORDERED: PHENYLEPHRINE-NS 100 MCG/ML 10 ML SYRINGE ONE (07:43)
[2024-07-27] MEDS ORDERED: Dexamethasone 20 MG/5 ML VIAL ONE (07:45)
[2024-07-27] MEDS ORDERED: ePHEDrine Sulfate 50 MG/10 ML VIAL ONE (07:56)
[2024-07-27] MEDS ORDERED: Ondansetron PF 4 MG/2 ML Vial ONE (09:41)
[2024-07-27] MEDS ORDERED: fentaNYL 50 mcg/mL 1 mL Vial ONE ×2 (10:24→10:46)
[2024-07-27] MEDS ORDERED: HYDROcodone/Acetaminophen 5/325 mg Tablet ONE (12:02)
== END 2024-07-27 13:00 | disposition home or self-care (01) ==
LOC: SDC 05:40
PROVIDERS: ATTEND Plastic Surgery
PROC: 0HPU0JZ Removal of Synthetic Substitute from Left Breast, Open Approach (ICD-10-PCS; principal; 2024-07-27)
PROC: 0HPT0JZ Removal of Synthetic Substitute from Right Breast, Open Approach (ICD-10-PCS; 2024-07-27)
DX: T85.44XA Capsular contracture of breast implant, initial encounter (principal); N60.21 Fibroadenosis of right breast; N60.22 Fibroadenosis of left breast; N18.9 Chronic kidney disease, unspecified; Z88.0 Allergy status to penicillin; Z88.5 Allergy status to narcotic agent; Z79.1 Long term (current) use of non-steroidal anti-inflammatories (NSAID); Z79.899 Other long term (current) drug therapy; Y83.1 Surgical operation with implant of artificial internal device as the cause of abnormal reaction of the patient, or of later complication, without mention of misadventure at the time of the procedure
CPT/HCPCS: 19371; J0171; J0665; J1100; J1644; J2704 ×2; J3010; J3490; 88304; J2405; J3370